=== PATIENT | female | born 1970 | race Caucasian/White ===

== ENCOUNTER 2020-02-19 10:57 | Outpatient (CLI) | payer MEDICARE, MEDICAID, SELFPAY ==
--- NOTE | 2020-02-19 11:09 | MM_ITS ---
WS: [id number] SCREENING DIGITAL MAMMOGRAM WITH CAD HISTORY: SCREEN COMPARISON: 10/29/2017, 08/12/2016, 05/13/2015 and 11/17/2013 Bilateral CC and MLO views submitted. Computer aided detection analyzed. Breast composition: The breasts are heterogeneously dense, which may obscure small masses. Previously described and biopsied mass in the LEFT breast at 9:00 is again evident. This mass is slightly incre ased in size since the prior study. Diameter has increased from 10 to 13 mm. Otherwise no interval ch keri. Recommend ultrasound evaluation of the LEFT breast mass at 9:00. This mass has been present for multi ple years but is measuring slightly greater in anterior posterior dimension. Recommend reevaluation b y ultrasound to evaluate for possible increase in size versus stability. This mass was benign on a pr ior biopsy. MM/[place] [id number] IMPRESSION: BI-RADS: 0-Incomplete: Need additional imaging evaluation FOLLOW UP: Need Additional Imaging
== END 2020-02-19 10:58 | disposition home or self-care (01) ==
PROVIDERS: PCP Family Medicine; Visit Provider Family Medicine
DX: Z12.31 Encounter for screening mammogram for malignant neoplasm of breast (principal); N63.25 Unspecified lump in the left breast, overlapping quadrants
CPT/HCPCS: 77067

== ENCOUNTER 2022-11-26 09:50 | Outpatient (CLI) | payer MEDICARE, MEDICAID, SELFPAY ==
--- NOTE | 2022-11-26 10:09 | XR_ITS ---
WS: [id number] Left foot, 3 views, 11/26/2022 Clinical Data: PLANTAR FASCITIS OF L FOOT Comparison: None. Findings: No fractures or dislocations are seen. No bone destruction or erosion is noted. The joint spaces and soft tissues are normal. There is a plantar spur. XR/XR foot LT min 3V* [id number] Impression: Negative left foot.
== END 2022-11-26 09:51 | disposition home or self-care (01) ==
PROVIDERS: PCP Family Medicine; Visit Provider Nurse Practitioner Family
DX: M72.2 Plantar fascial fibromatosis (principal)
CPT/HCPCS: 73630

== ENCOUNTER 2023-02-17 13:42 | Outpatient (CLI) | payer MEDICARE, MEDICAID, SELFPAY ==
--- NOTE | 2023-02-17 13:57 | MM_ITS ---
WS: [id number] BILATERAL 3D TOMOSYNTHESIS DIGITAL SCREENING MAMMOGRAPHY WITH CAD CLINICAL INFORMATION: SCREENING HISTORY: Screening mammogram. No current complaints. COMPARISON: February 19, 2020 TECHNIQUE: Bilateral CC and MLO views. FINDINGS: The breasts are composed of heterogeneous fibroglandular density tissue, which can limit the detectio n of small underlying mass lesions. Stable previously described and biopsied ovoid nodule in the LEF T breast 9:00 position posterior depth. Clustered punctate calcifications RIGHT breast. New ovoid nodular density RIGHT breast anterior depth measuring approximately 8 mm. This is best seen on the cc view. This appears to be approximately 12 to 1:00 position position. Recommend RIGHT breas t diagnostic mammography and ultrasound. LEFT breast is unchanged. MM/[place] [id number] IMPRESSION: BI-RADS: 0-Incomplete: Need additional imaging evaluation FOLLOW UP: Need Additional Imaging Recommendation RIGHT breast diagnostic mammography and ultrasound.
== END 2023-02-17 13:43 | disposition home or self-care (01) ==
LOC: RAD 13:47
PROVIDERS: PCP Family Medicine; Visit Provider Nurse Practitioner Family
DX: Z12.31 Encounter for screening mammogram for malignant neoplasm of breast (principal); N63.11 Unspecified lump in the right breast, upper outer quadrant
CPT/HCPCS: 77063; 77067

== ENCOUNTER → 2024-08-28 10:10 | Outpatient (BNVA) | payer MEDICARE, MEDICAID, SELFPAY | PROVIDERS: PCP Family Medicine; Visit Provider Specialist | DX: M79.641 Pain in right hand (principal); M18.11 Unilateral primary osteoarthritis of first carpometacarpal joint, right hand | CPT/HCPCS: 73130 ==

== ENCOUNTER 2024-08-28 12:12 | Outpatient (CLI) | payer MEDICARE, MEDICAID, SELFPAY | END 2024-08-28 12:13 | disposition home or self-care (01) | LOC: SPT 12:13 | PROVIDERS: Visit Provider Specialist | DX: Z46.89 Encounter for fitting and adjustment of other specified devices (principal); M19.041 Primary osteoarthritis, right hand | CPT/HCPCS: 99204; L3924 ==

== ENCOUNTER → 2024-09-11 09:24 | Outpatient (BNVA) | payer MEDICARE, MEDICAID, SELFPAY | PROVIDERS: Visit Provider Specialist | DX: M25.511 Pain in right shoulder | CPT/HCPCS: 73030; 99214 ==

== ENCOUNTER 2024-09-25 10:41 | Outpatient (RCR) | payer MEDICARE, MEDICAID, SELFPAY | END 2024-10-10 23:59 | disposition home or self-care (01) | LOC: SPT 10:41 | PROVIDERS: Visit Provider Specialist | DX: M25.511 Pain in right shoulder (principal) | CPT/HCPCS: 97110; 97140; 97161 ==

== ENCOUNTER 2024-10-11 06:30 | Outpatient (RCR) | payer MEDICARE, MEDICAID, SELFPAY | END 2024-11-10 23:59 | disposition home or self-care (01) | LOC: SPT 06:30 | PROVIDERS: Visit Provider Specialist | DX: M25.511 Pain in right shoulder (principal) | CPT/HCPCS: 97110; 97140 ==

== ENCOUNTER 2024-12-15 13:53 | Outpatient (CLI) | payer MEDICARE, MEDICAID, SELFPAY ==
--- NOTE | 2024-12-15 13:58 | MM_ITS ---
WS: [id number] BILATERAL 3D TOMOSYNTHESIS DIGITAL SCREENING MAMMOGRAPHY WITH CAD CLINICAL INFORMATION: SCREENING HISTORY: Screening mammogram. No current complaints. COMPARISON: 2022 TECHNIQUE: Bilateral CC and MLO views. FINDINGS: The breasts are composed of heterogeneous fibroglandular density tissue, which can limit the detection of small underlying mass lesions. No suspicious mass, asymmetry, calcifications, or architectural distortion. No evidence of malignancy. Stable previously described ovoid nodule LEFT breast 9 o'clock position was previously biopsied. This is adjacent to the chest wall and appears stable. Clustered punctate calcifications RIGHT breast. Previously described ovoid nodular density RIGHT breast anteriorly measuring 8 mm at the 12 to 1 o'clock position. This was previously described in 2022. Patient did not return for additional evaluation at that time however this is unchanged in size today measuring 8 mm. Stability is reassuring. Also there is a new biopsy clip RIGHT breast adjacent to an additional smaller nodule at the 12 o'clock position middle depth. This appears new from 02/17/2023. Recommend correlation with clinical history. MM/MM [facility] tomosynthesis [id number] IMPRESSION: DENSITY:The breasts are heterogeneously dense, which may obscure small masses. BI-RADS: 2 - Benign FOLLOW UP: 1 Year Follow-up Recommend return to annual screening mammography.
== END 2024-12-15 13:54 | disposition home or self-care (01) ==
LOC: RAD 13:55
PROVIDERS: PCP Registered Nurse; Visit Provider Registered Nurse
DX: Z12.31 Encounter for screening mammogram for malignant neoplasm of breast (principal); R92.1 Mammographic calcification found on diagnostic imaging of breast; N63.15 Unspecified lump in the right breast, overlapping quadrants; N63.25 Unspecified lump in the left breast, overlapping quadrants
CPT/HCPCS: 77063; 77067

== ENCOUNTER → 2025-09-10 15:02 | Outpatient (BNVA) | payer MEDICARE, MEDICAID, SELFPAY | PROVIDERS: PCP Registered Nurse; Referring Provider Family Medicine; Visit Provider Specialist | DX: Z01.818 Encounter for other preprocedural examination (principal); M65.332 Trigger finger, left middle finger | CPT/HCPCS: 36415; 73130; 80053; 81001; 85025; 99214 ==

== ENCOUNTER 2025-09-25 13:39 | Day surgery (SDC) | payer MEDICARE, MEDICAID, SELFPAY ==
[2025-09-25] VITALS (11 sets, daily range): BP systolic 113–152; BP diastolic 72–88; PULSE 63–110; RESP 16–18; TEMP 36.4–37.2; O2SAT 91–97; BMI 37.4
[2025-09-25] MEDS: acetaminophen 1,000 MG/100 ML PIGGYBACK 400 MG IV (14:23)
--- NOTE | 2025-09-25 14:35 | P.HPUD_ITS ---
Surgery/Procedure H&P Update DATE OF PROCEDURE: September 25, 2025 DATE H&P PERFORMED: 09/10/25 H&P UPDATE INFORMATION: I have reviewed H&P completed within last 30 days, I have examined patient prior to procedure, No changes to prior documentation, H&P is in [facility] EMR on date indicated and Risks and benefits of the procedure reviewed PREOP DIAGNOSIS: Left middle finger trigger finger PLANNED PROCEDURE: Operation Date: 09/25/25 15:10 Proposed Procedures p LEFT Middle Finger Trigger Finger Release(Left) - Denae Wilkes MD Related Problem List Diagnoses 1. Trigger finger, left middle finger:
--- NOTE | 2025-09-25 16:40 | ANES.PREANE2 ---
Pre-Anesthetic Assessment Height/Weight: Height 5 ft 5 in Weight 225 lb Temp Pulse Resp BP Pulse Ox O2 Del Method 97.8 F 63 16 152/86 97 Room Air 09/25/25 13:56 09/25/25 13:56 09/25/25 13:56 09/25/25 13:56 09/25/25 13:56 09/25/25 13:56 Preop Diagnosis: Left middle finger trigger finger Operation Date: 09/25/25 15:10 Proposed Procedures p LEFT Middle Finger Trigger Finger Release(Left) - Denae Wilkes MD Was Beta Marlee taken within 24 hours: N/A Was Clonidine taken within 24 hours: N/A Last intake: Intake Last Liquid Date 09/25/25 Last Liquid Time 07:00 Last Solid Date 09/24/25 Last Solid Time 23:45 Social No alcohol and No tobacco Exam alert, oriented x 3, clear to auscultation bilaterally and regular rate & rhythm Airway Submandibular: within normal limits Cervical ROM: within normal limits Mallampati: Class II Dentition: full Anesthetic Plan ASA status: 3 Anesthesia: General Other: No prior issues with anesthesia NPO since yesterday evening History of hypothyroidism on Synthroid GERD on Pepcid Denies any cardiac or pulmonary issues Preop BP 152/86 Labs 09/10/2025 reviewed acceptable for procedure today Plan for general anesthesia with LMA Medications/Allergies Home Medications ?Medication ?Instructions ?Recorded ?Confirmed ?Last Taken ?Type [facility] Joint Brace, right side #1 ea 08/28/24 09/25/25 Unknown Rx albuterol sulfate 90 mcg/actuation 2 puff inhalation Q6H PRN Allergic 08/28/24 09/25/25 Unknown History aerosol inhaler (Ventolin HFA) Symptoms calcium carbonate 500 1 tab PO PRN PRN Heartburn 08/28/24 09/25/25 Unknown History mg-simethicone 20 mg chewable tablet cholecalciferol (vitamin D3) 125 125 mcg PO DAILY 08/28/24 09/25/25 09/10/25 History mcg (5,000 unit) capsule ciclopirox 8 % topical solution 1 applic topical DAILY PRN Rash 08/28/24 09/25/25 Unknown History diclofenac sodium 1 % topical gel 2 g topical DAILY 08/28/24 09/25/25 Unknown History (Voltaren Arthritis Pain) dicyclomine 20 mg tablet 20 mg PO TID 08/28/24 09/25/25 09/24/25 History ferrous sulfate, dried 144 mg (45 144 mg PO DAILY 08/28/24 09/25/25 09/10/25 History mg iron) tablet,extended release gelatin 650 mg capsule 1,300 mg PO DAILY 08/28/24 09/25/25 09/10/25 History hydrocodone 5 mg-acetaminophen 325 1 tab PO Q6H Pain 08/28/24 09/25/25 09/24/25 History mg tablet levothyroxine 100 mcg capsule 100 mcg PO DAILY 08/28/24 09/25/25 09/25/25 History multivitamin 1 tab PO DAILY 08/28/24 09/25/25 09/10/25 History pantoprazole 40 mg tablet,delayed 40 mg PO DAILY 08/28/24 09/25/25 09/25/25 History release triamcinolone acetonide 0.1 % 1 applic topical DAILY PRN Rash 08/28/24 09/25/25 Unknown History topical cream vilazodone 40 mg tablet (Viibryd) 40 mg PO DAILY 08/28/24 09/25/25 09/24/25 History vitamin B complex 1 tab PO DAILY 08/28/24 09/25/25 09/10/25 History famotidine 20 mg tablet 20 mg PO QPM 09/24/25 09/25/25 09/23/25 History Allergies Allergy/AdvReac Type Severity Reaction Status Date / Time diazepam (From Valium) Allergy Severe ADR-Halluci Verified 09/10/25 15:05 nating sumatriptan (From Imitrex) Allergy Severe ADR-Headach Verified 09/10/25 15:05 e fluoxetine (From Prozac) Allergy Mild ADR-Heartbu Verified 09/10/25 15:05 rn Current Medications Generic Name Dose Route Start Last Admin Trade Name Freq PRN Reason Stop Dose Admin Sodium Chloride 1,000 mls @ 30 mls/hr 09/25/25 13:45 09/25/25 14:21 Sodium Chloride 0.9% IV 09/26/25 13:44 30 mls/hr .Q24H COREY Administration PFSH Anesthesia Social History Smoking and tobacco/nicotine status: former use of tobacco/nicotine
[2025-09-25] MEDS: ceFAZolin 2,000 mg SDV 2000 MG IVP (17:26)
--- NOTE | 2025-09-25 18:09 | PM.OP ---
Operative Report Date of procedure: September 25, 2025 Pre-op diagnosis: Left middle finger triggering Post-op diagnosis: Left middle finger triggering Post-op findings: Significant compression across the flexor tendons of the long finger of the left hand. Procedure done: Left long finger trigger finger release Implants: None Specimens removed/disposition: None Pathology: None Surgeon: Denae Wilkes MD Transfer Engineer: None Anesthesia: General (Per LMA, ASA 3) Estimated blood loss (mL): 2 Tourniquet time (min): 12 (At 250 mmHg) IV fluids (mL): 400 Urine output (mL): 0 (No Jolly but I did look at) Complications: None Findings: Significant compression with reactive fluid around the flexor tendons of the long finger of the left hand Condition: stable Disposition: PACU (Then return to same-day surgery for discharge to home) Brief History: This is a 55-year-old woman presented with complaints of severe pain in the left long finger secondary to trigger finger symptoms. The patient states her finger will get stuck and it becomes even more painful. After discussion in the office, the patient wished to proceed with surgical release. Risks and complications were discussed with her, and consents were signed. Questions were answered at that time. Further Opportunity for questions was given the day of surgery. Procedure: Patient was brought to the operating theater. She was placed on the operating room table. General anesthesia per LMA, ASA 3, was administered uneventfully. Ancef 2 g was administered prophylactically as well. A tourniquet was placed high on the arm, and after exsanguination, it was elevated to 250 mmHg. Tourniquet time was 12 minutes. Surgical pause was performed prior to commencement of the surgical procedure. At the time of the surgical pause we identified the site and side of surgery. We also identified the patient's identity and appropriate administration of IV antibiotics. Following the surgical pause, an incision was made [along the distal palmar crease beneath the long finger. Dissection continued through the skin to the subcutaneous tissues using a scalpel. Blunt dissection was then utilized to spread soft tissues and allow access to the A1 laura. Each A1 laura was identified. It was then incised longitudinally and sharply using a knife. This was accomplished without difficulty and atraumatically. Once the A1 laura was released, tendons were brought up out of the wound and evaluated. There were no gross masses on the palm, but there was fluid surrounding the tendon indicative of inflammation. Tendons were returned to their normal position. We then irrigated the wound and subsequently closed it with 3-0 nylon with an interrupted mattress type suture. Following closure of the wound, the wound was injected with bupivacaine plain into the subcutaneous tissues as a local anesthetic. Sterile dressing was then placed consisting of Dermabond, OpSite, fluffed fluffs, and an Tyler wrap. The patient was returned to recovery in satisfactory condition. She will be discharged home to follow-up with me in the office. There were no complications and no specimens. Related Problem List Diagnoses 1. Trigger finger, left middle finger:
== END 2025-09-25 19:20 | disposition home or self-care (01) ==
PROVIDERS: PCP Registered Nurse; Visit Provider Specialist
PROC: (CPT 26055; principal; 2025-09-25 15:10)
DX: M65.332 Trigger finger, left middle finger (principal); E03.9 Hypothyroidism, unspecified; K21.9 Gastro-esophageal reflux disease without esophagitis; Z79.891 Long term (current) use of opiate analgesic; Z87.891 Personal history of nicotine dependence
CPT/HCPCS: 26055; J0131; J0690; J1100; J2405; J2704; J3010; J3490; J7030; J9999

== ENCOUNTER → 2025-10-08 14:19 | Outpatient (BNVA) | payer MEDICARE, MEDICAID, SELFPAY | PROVIDERS: PCP Registered Nurse; Visit Provider Specialist | DX: Z98.890 Other specified postprocedural states (principal) | CPT/HCPCS: 99024 ==